=== PATIENT | female | born 1965 | race Caucasian/White ===

== ENCOUNTER 2022-07-01 09:24 | Outpatient (CLI) | payer BC | END 2022-07-01 09:25 | disposition home or self-care (01) | LOC: CSHLAB 09:24 | PROVIDERS: ATTEND Internal Medicine | DX: Z20.822 Contact with and (suspected) exposure to COVID-19 (principal) | CPT/HCPCS: 87811 ==

== ENCOUNTER 2022-07-06 12:31 | Outpatient (CLI) | payer OTHER | END 2022-07-06 12:32 | disposition home or self-care (01) | LOC: CSHCP 12:31 | PROVIDERS: ATTEND Internal Medicine | DX: Z13.89 Encounter for screening for other disorder (principal) | CPT/HCPCS: 94010; 94729 ==